=== PATIENT | male | born 1980 | race Caucasian/White ===

== ENCOUNTER 2016-10-23 12:12 | Emergency (ER) | payer SELFPAY ==
[2016-10-23] MEDS ORDERED: ONDANSETRON 4 MG/2ML 2 ML VIAL ONE (12:29)
[2016-10-23] MEDS ORDERED: FENTANYL 100 MCG/2 ML VIAL ONE (12:29)
[2016-10-23] MEDS ORDERED: SODIUM CHLORIDE 0.9% 1,000 ML ONE (12:29)
[2016-10-23 12:46] LABS: ABSOLUTE NEUTROPHIL COUNT 3.5 K/mm3 (1.8-7.7); BASO % 0.3 % (0.2-1.0); EOS # 0.1 (0.0-0.5); EOS % 0.9 % (0.9-2.9); HEMATOCRIT 46.8 % (32.0-52.0); HEMOGLOBIN 15.3 gm/l (14.0-18.0); IMM NEUT% 0.1 % (0-1); LYMPH # 2.8 (1.0-4.8); LYMPH % 40.8 % (15-45); MEAN CELL VOLUME 93.4 fl (80.0-94.0); MEAN CORPUSCULAR HEMOGLOBIN 30.5 pg (27.0-31.0); MEAN CORPUSCULAR HGB CONC 32.7 g/dl (33.0-37.0); MEAN PLATELET VOLUME 10.8 fl (7.4-10.4); MONO # 0.5 (0.0-0.8); MONO % 6.9 % (4-12); PLATELET COUNT 199 K/mm3 (130-400); RED CELL DISTRIBUTION WIDTH 13.2 % (11.5-14.5)
[2016-10-23 12:56] LABS: ALB/GLOB RATIO 1.5 (>1.0); ALBUMIN 4.6 gm/dL (3.5-5.7); CALCIUM 9.4 mg/dL (8.6-10.3)
--- NOTE | 2016-10-23 13:00 | CT ---
Name: SIMÓN WILKERSON Exam: CT head without contrast Comparison: None Clinical history: Trauma Technique: Helical CT was performed through the head. Angled axial reconstructions were obtained. Sagittal and coronal reconstructions were obtained as well. No contrast was given. An automated dose reduction technique was used to minimize patient radiation dose. Findings: There is no shift of the midline structures. Ventricles are of normal size and configuration. There is no mass, mass effect or hemorrhage. Cisterns are uneffaced. Posterior fossa is unremarkable. In the left maxillary sinus, there is a partially imaged 1.6 cm mucous retention cyst or polyp. Visualized mastoid air cells are clear. There is no fracture. Impression: 1. No acute process 2. Partially imaged 1.6 cm left maxillary sinus mucus retention cyst or polyp Note: The above report was uploaded to [facility]'s electronic medical records system at 1256 hours.
--- NOTE | 2016-10-23 13:03 | CT ---
Name: SIMÓN WILKERSON Exam: CT of the cervical spine without contrast Comparison: None. Clinical history: Pain. Trauma Procedure: Helical CT using multidetector technique was applied to the cervical spine. No contrast was given. Sagittal, axial and coronal images are submitted. And automated dose reduction technique was used to minimize patient radiation dose. Findings: Bone density is normal. Vertebral body alignment is normal. There is at least mild degenerative disc disease at C5-6. Degenerative facet disease is most prominent at T1-2. There is no fracture or acute disc. The odontoid is intact. Perivertebral soft tissues are within normal limits. Visualized upper lobes are clear. Impression: No acute bony abnormality Note: The above report was uploaded to [facility]'s electronic medical records system at 1259 hours.
--- NOTE | 2016-10-23 13:18 | RAD ---
Name: SIMÓN WILKERSON Exam: Single view chest Comparison: None Clinical history: Trauma. Chest pain. Findings: Single view of the chest is submitted. Heart, mediastinum and hilar structures are normal. There is no failure, infiltrate, pleural effusion or pneumothorax. There is a slight contour abnormality of the anterolateral margin of the left sixth rib. Old trauma is favored. There is no other abnormality. Impression: 1. No acute cardiopulmonary process 2. Tiny cortical irregularity anterior lateral margin left sixth rib. Old trauma is favored.
[2016-10-23] MEDS ORDERED: MORPHINE SULFATE 4 MG/ML SYRINGE ONE (13:19)
--- NOTE | 2016-10-23 13:19 | RAD ---
Name: SIMÓN WILKERSON Exam: Right shoulder Comparison: None Clinical history: Trauma. Chest pain. Findings: 2 views of the right shoulder are submitted. Bone density is normal. There is complete dislocation of the AC joint. The acromion is underneath the distal clavicle. Coracoclavicular distance is widened. Subacromial space is maintained. There is no fracture. Visualized right lung is clear. Impression: Right AC separation with coracoclavicular ligamentous injury as well.
--- NOTE | 2016-10-23 13:21 | RAD ---
Name: SIMÓN WILKERSON Exam: Left shoulder Comparison: None Clinical history: Trauma. Findings: 3 views left shoulder submitted. There is small bone island in the humeral head. There is mild irregularity of the humeral head compatible with prior trauma. Degenerative disease of the AC joint is noted. Coracoclavicular joints normal. Subacromial space is maintained. There is no fracture, dislocation or suspicious soft tissue calcification. Impression: Degenerative irregularity left shoulder. There is no acute bony abnormality
== END 2016-10-23 14:05 | disposition home or self-care (01) ==
LOC: ED 12:12
DX: S49.91XA Unspecified injury of right shoulder and upper arm, initial encounter (principal); V86.59XA Driver of other special all-terrain or other off-road motor vehicle injured in nontraffic accident, initial encounter; F17.210 Nicotine dependence, cigarettes, uncomplicated
CPT/HCPCS: 83690; 85025; 80053; 71010; 73030 ×2; 72125; 70450; 96375 ×2; 99284; 96374; 99283; J3010; J2270; J2405; J7030